=== PATIENT | female | born 1935 | race Caucasian/White ===

== ENCOUNTER 2017-05-17 07:43 | Observation (INO) | payer OTHER, BC ==
[2017-05-17] MEDS ORDERED: ceFAZolin 2 GM/DEXTROSE 100 ML IV ONE (08:27)
[2017-05-17] MEDS ORDERED: LR 1,000 ML IV ONE (08:28)
[2017-05-17] MEDS ORDERED: LIDOCAINE 1% 2 ML INJ ID PRN (08:28)
[2017-05-17] MEDS ORDERED: PHENAZOPYRIDINE HCL 200 MG TAB PO ONE (09:00)
[2017-05-17] MEDS ORDERED: BUPIVACAINE/EPI 0.5% 30 ML SDV ONE (09:21)
--- NOTE | 2017-05-17 09:35 | PDGENHP ---
History and Physical History and Physical: Assessment and Plan: 1. Lateral cystocele Andrea has stage III pelvic organ prolapse predominantly involving her anterior and apical compartments. We reviewed all conservative and surgical options. She is not interested in a pessary. She is a very active woman and prefers surgical correction. She will be scheduled for a robotic supracervical hysterectomy, BSO, sacro-colpopexy, mid urethral sling, and cystoscopy. They likely will be moving in the next 2 months. She would like to schedule this in April before her trip to [facility] in June. 2. Second degree uterine prolapse 3. Genuine stress incontinence, female Subjective: Patient ID: Andrea Ayoub is a 82 y.o. female who presents to [facility] for prolapse. HPI Andrea Ayoub presents for a preoperative visit. She is scheduled for a robotic supracervical hysterectomy, BSO, sacro-colpopexy, mid urethral sling, and cystoscopy.. The risks, benefits, and alternatives were presented and informed consent was obtained. 40 minutes of this 40 minute appointment was spent counceling, reviewing the procedure in detail, and discussing the preoperative and postoperative instructions. Below is a copy of our prior visit note. Andrea is an 81-year-old para [address] Cuevas who presents to discuss prolapse. She noticed a bulge protruding from her vagina several months ago. She saw Dr. Cuevas who diagnosed her with prolapse. They discussed options. She is interested in surgical correction. She states her urine stream is normal. She did leak urine before she noticed the bulge but has not been leaking with sneezing since then. She has no problems emptying her bowels. She is not sexually active secondary to her 's prostate cancer. She is a very active woman participating in walking, aqua exercise, and working outside. PastMedicalHistory Past Medical History: Diagnosis Date Acute conjunctivitis 12/04/2009 Arthritis Basal cell carcinoma 07/31/2014 Left superior back, Left posterior shoulder Chronic kidney disease Diabetes mellitus (HC code) Diarrhea 03/20/2014 Hypertension Squamous carcinoma (HC code) 07/31/2014 nose Upper respiratory infection 10/22/2014 PastSurgicalHistory Past Surgical History: Procedure Laterality Date CHOLECYSTECTOMY COLONOSCOPY last done at 66 declines further SKIN BIOPSY TONSILLECTOMY AND ADENOIDECTOMY CURRENT MEDICATIONS: Current Outpatient Prescriptions Medication Sig amLODIPine (NORVASC) 5 mg tablet Take 1 tablet by mouth daily. aspirin 81 mg chewable tablet Take 81 mg by mouth daily. atenolol (TENORMIN) 25 mg tablet Take 1 tablet by mouth daily. atorvaSTATin (LIPITOR) 20 mg tablet Take 1 tablet by mouth daily. As directed CALCIUM-VITAMIN D3 PO Take 1 tablet by mouth daily. ergocalciferol, vitamin D2, (DRISDOL) 50,000 unit capsule TAKE 1 CAPSULE EVERY OTHER WEEK FEXOFENADINE HCL (ANGEL PO) Take by mouth daily. losartan-hydrochlorothiazide (HYZAAR) 100-25 mg per tablet Take 1 tablet by mouth daily. metFORMIN (GLUCOPHAGE-XR) 500 mg 24 hr tablet TAKE 2 TABLETS DAILY montelukast (SINGULAIR) 10 mg tablet Take 1 tablet by mouth daily as needed for allergies. multivitamin (HEXAVITAMIN) per tablet Take 1 tablet by mouth daily. omega-3 fatty acids-vitamin E (FISH OIL) 1,000 mg capsule Take by mouth daily. No current facility-administered medications for this visit. ALLERGIES: Jose inhibitors I have reviewed, verified and agree with the past medical, surgical, , family, social and ROS history as documented by the RN today. Review of Systems Objective: Vital Signs: There were no vitals taken for this visit. Physical Exam Gen: This is an alert, well developed woman in no distress. Neuro: She moves all extremities. Psych: She is appropriate, oriented, with normal affect. Neck: No thyroid enlargement, adenopathy, or tenderness. Lungs: Clear to ascultation, no wheezes or rales. Heart: Regular rate and rhythm without obvious murmurs. Abdomen: Soft, non-tender, without guarding, rebound, or masses. Extremities: No edema or cyanosis. Pelvic: Normal external genitalia. Cervix without lesions or discharge. Uterus normal sized, mobile, non-tender. Adnexa non-tender without enlargement. The introitus is mildly gaping. The vagina is atrophic. She has a third- degree cystocele, second-degree uterine prolapse to the hymen and greater than first-degree rectocele. The urethra is mobile with small leaking with coughing. TIME/COMMUNICATION: I personally spent a total of 40 minutes. Of that 30 minutes was counseling/ coordination of patient's care. See my note above for details. Willie Grimes MD Board Certified Female Pelvic Medicine and Reconstructive Surgery Director of Minimally Invasive Gynecologic Surgery, [facility] Minimally Invasive Gynecologic Surgery Designee
[2017-05-17] MEDS ORDERED: MIDAZOLAM 2 MG/2 ML VIAL IVP ONE (09:51)
--- NOTE | 2017-05-17 09:51 | PDANEPAE ---
ANE History of Present Illness 82 yo for laparscopic hysterectomy ANE Past Medical History - Cardiovascular History Hx Hypertension: Yes Hx Arrhythmias: No Hx Chest Pain: No Hx Coronary Artery / Peripheral Vascular Disease: No Hx CHF / Valvular Disease: No Hx Palpitations: No Cardiovascular History Comment: well controlled - Pulmonary History Hx COPD: No Hx Asthma/Reactive Airway Disease: No Hx Recent Upper Respiratory Infection: No Hx Oxygen in Use at Home: No Hx Sleep Apnea: No Sleep Apnea Screening Result - Last Documented: Negative - Neurologic History Hx Cerebrovascular Accident: No Hx Seizures: No Hx Dementia: No - Endocrine History Hx Diabetes: No Endocrine History Comment: NIDDM HgbA1C 6.6 - Renal History Hx Renal Disorders: Yes Renal History Comment: stress incontinence, longer time to empty bladder. - Liver History Hx Hepatic Disorders: No - Neurological & Psychiatric Hx Hx Neurological and Psychiatric Disorders: No - Cancer History Hx Cancer: No Cancer History Comment: basal cell skin CA -nose, back - Congenital Disorder History Hx Congenital Disorders: No - GI History Hx Gastrointestinal Disorders: No - Other Health History Other Health History: Uterine prolapse. OA hips, knees - Chronic Pain History Chronic Pain: No - Surgical History Prior Surgeries: tonsillectomy - child. lap katherin. cataract extractions w/IOL ANE Review of Systems Review of Systems: - Exercise capacity METS (RN): 4 METS ANE Patient History - Allergies Allergies/Adverse Reactions: No Known Allergies Allergy (Verified 05/02/17 14:44) - Home Medications Home Medications: Aspirin [Aspirin 81mg (*)] 81 mg PO DAILY 04/25/17 [Last Taken 05/10/17] Atenolol [Tenormin 25 mg (*)] 25 mg PO DAILY 04/25/17 [Last Taken 05/17/17 06:00 ] Atorvastatin Calcium [Lipitor 20 mg (*)] 20 mg PO HS 04/25/17 [Last Taken 22:00] Ergocalciferol [Vitamin D2 (*)] 50,000 unit PO Q14D 04/25/17 [Last Taken ] Herbals/Supplements -Info Only 1 ea PO DAILY 04/25/17 [Last Taken 05/10/17] Losartan/Hydrochlorothiazide [Losartan-Hctz 100-25 Mg Tab] 1 each PO DAILY 04/25 [Last Taken 05/16/17 07:00] Multivitamins [Multivitamin (*)] 1 each PO DAILY 04/25/17 [Last Taken 05/10/17] [place]-3 Fatty Acids [Fish Oil 1000 mg (*)] 2,000 mg PO DAILY 04/25/17 [Last Taken 05/10/17] amLODIPine BESYLATE [Norvasc 5 mg (*)] 5 mg PO DAILY 04/25/17 [Last Taken 06:00] metFORMIN HCL [Glucophage 500 mg (*)] 500 mg PO DAILY 04/25/17 [Last Taken 05/16 07:00] - NPO status NPO Since - Liquids (Date): 05/17/17 NPO Since - Liquids (Time): 06:00 NPO Since - Solids (Date): 05/16/17 NPO Since - Solids (Time): 19:00 - Smoking Hx Smoking Status: Never smoked ANE Labs/Vital Signs - Vital Signs Blood Pressure: 131/61 Heart Rate: 53 Respiratory Rate: 16 O2 Sat (%): 92 Height: 5 ft 4 in Weight: 63.957 kg ANE Physical Exam - Airway Mallampati Score: Class 2 Mouth exam: normal dental/mouth exam - Pulmonary Pulmonary: no respiratory distress - Cardiovascular Cardiovascular: regular rate and rhythym - ASA Status ASA Status: II ANE Anesthesia Plan Anesthesia Plan: general endotracheal anesthesia
[2017-05-17] MEDS ORDERED: fentaNYL 100 MCG/2 ML INJ ONE ×2 (09:56→10:39)
[2017-05-17] MEDS ORDERED: PROPOFOL/EMULSION 500 MG/50 ML BOTTLE IV ONE ×2 (09:57→11:55)
[2017-05-17] MEDS ORDERED: HYDROmorphONE/DILAUDID 2 MG/ML INJ ONE (11:45)
[2017-05-17] MEDS ORDERED: ONDANSETRON 4 MG/2 ML VIAL IVP PRN ×2 (12:58→13:16)
[2017-05-17] MEDS ORDERED: NALOXONE HCL 0.4 MG/ML INJ IVP PRN (12:58)
[2017-05-17] MEDS ORDERED: fentaNYL 100 MCG/2 ML INJ IVP PRN (12:58)
[2017-05-17] MEDS ORDERED: HYDROmorphONE/DILAUDID 1 MG/ML INJ IVP PRN ×2 (12:58→13:16)
[2017-05-17] MEDS ORDERED: HYDROCODONE/APAP 5/325 TAB PO PRN (13:16)
[2017-05-17] MEDS ORDERED: PROMETHAZINE HCL 25 MG/ML INJ IVP PRN (13:16)
[2017-05-17] MEDS ORDERED: DIAZEPAM 10 MG/2 ML SYR IVP PRN (13:16)
[2017-05-17] MEDS ORDERED: LR 1,000 ML IV SCH (13:30)
[2017-05-17] MEDS ORDERED: ONDANSETRON 4 MG/2 ML VIAL ONE (14:21)
--- NOTE | 2017-05-17 14:43 | GOP ---
[f rep st] OPERATIVE REPORT DATE OF OPERATION: 05/17/2017 SURGEON: Willie Grimes MD HEAD OF MARKETING ADOMETRY: Ciera Saldivar CFA. ANESTHESIA: General. PREOPERATIVE DIAGNOSIS: 1. Cystocele. 2. Rectocele. 3. Uterine prolapse. 4. Stress urinary incontinence. POSTOPERATIVE DIAGNOSIS: 1. Cystocele. 2. Rectocele. 3. Uterine prolapse. 4. Stress urinary incontinence. PROCEDURE PERFORMED: 1. Robotic-assisted laparoscopic hysterectomy, bilateral salpingo-oophorectomy. 2. Robotic-assisted laparoscopic sacrocervicopexy with mesh. 3. Repair of cystocele and rectocele. 4. Transobturator sling. 5. Cystoscopy. FINDINGS: SPECIMENS: Uterus, bilateral tubes and ovaries. ESTIMATED BLOOD LOSS: Scant. DESCRIPTION OF PROCEDURE: The patient was taken to the operating room where she was identified. Gen eral anesthesia was administered, found to be adequate. She was placed in the lithotomy position and prepared and draped in normal sterile fashion. A Faulkner catheter was placed in her bladder. A 1 cm infraumbilical incision was made with a scalpel. The Veress needle with the CO2 gas flowing was adva nced into the peritoneal cavity. The abdomen was then insufflated with carbon dioxide gas. The 12 m m trocar, followed by the laparoscope, were then inserted. The upper abdomen was unremarkable. Two lateral ports were placed on either side under direct visualization. She then was placed in [place] n[place] position and the da Julieth robot docked on the left side. The instruments were brought into the abdominal cavity under direct visualization. The left round ligament was divided. The anterior leaf of the broad ligament was incised to the bifu rcation of the left common iliac vessels. A window was created in the posterior leaf to skeletonize the infundibulopelvic vessels. They were then cauterized and transected. The anterior leaf of the b road ligament was then incised over the left uterine vessels and across the cervix. The bladder was gently dissected off the cervix and upper vagina. The left uterine vessels were then cauterized and transected. The exact same procedure was performed on the patient's right side. The uterus was then bivalved to aid in removal through the umbilicus. The uterus and upper 2/3 of the cervix were amput ated from the lower third of the cervix with the hot anjelica. The specimen was then placed in the rig upper quadrant for later removal. The Colpo-Probe was then placed in the vagina. The bladder was further dissected off the anterior vaginal wall down to the level of the bladder neck. The rectovag inal space was then entered and the rectum dissected off the posterior vaginal wall down to the level of the perineal body. Measurements were then obtained and the mesh trimmed to size. The sigmoid co romel was then retracted laterally. The peritoneum of the sacral promontory was incised. The fat pad was gently dissected off the anterior longitudinal ligament. The mesh was then brought into the abdo janki cavity. Three sutures of 4-0 [place] were used to attach the distal posterior mesh to the per ineal body. Two additional rows of [place] sutures were placed posteriorly. Three rows were placed anteriorly to suture the mesh down to the bladder neck and laterally to the paravaginal tissue. The Colpo-Probe was then removed. The mesh was placed over the promontory and the tension adjusted. I then scrubbed back into the case to examine the vagina. The tension was then further adjusted to res olve the cystocele and rectocele without undue tension on the vagina. Two sutures of 2-0 [place] we re used to attach the sacral arm of the mesh to the anterior longitudinal ligament at the level of th e upper 1st sacral vertebral body. The excess mesh was then trimmed. The peritoneum was then closed over the entire mesh. The robot was then undocked. The specimen was removed through the umbilicus. The fascia was closed with 0 Vicryl, skin with 4-0 Monocryl and surgical adhesive. Attention was then turned to the sling portion of the procedure. A midurethral incision was made wit h a scalpel. Tunnels were created bilaterally out to the obturator internus muscles. Skin incisions were made over the obturator notches. The Halo trocar was placed through the left skin incision, re directed around the ischiopubic rami and out the vaginal incision using a vaginal finger as a guide. The lateral sulci were examined and no evidence of vaginal injury had occurred. The sling was then attached and brought out along the same course. The exact same procedure was performed on the patien t's right side. The sling was then adjusted to allow a small midurethral gap. The vaginal epitheliu m was closed with 2-0 Vicryl, skin with 4-0 Monocryl. Cystoscopy was then performed. Both ureters had vigorous jets of urine. No evidence of bladder nor urethral injury seen. No mesh nor suture was seen within the bladder nor urethra. No obvious pathol ogy was seen. Vaginal packing was then placed, anesthesia was reversed, and patient taken to PACU aw isaac, in stable condition. COMPLICATIONS: None. DISPOSITION: Patient stable to PACU. /[id number]/MODL
[2017-05-17] MEDS: KETOROLAC 15 MG/1 ML SDV IVP SCH (18:18)
[2017-05-17] MEDS: SIMETHICONE 80 MG TAB CHEW PO SCH ×2 (19:04→21:50)
[2017-05-17] MEDS ORDERED: ATORVASTATIN CALCIUM 20 MG TAB PO SCH (21:00)
[2017-05-17] MEDS: DOCUSATE SODIUM 100 MG CAP PO SCH (21:50)
[2017-05-18] MEDS: KETOROLAC 15 MG/1 ML SDV IVP SCH ×3 (00:21→11:57)
[2017-05-18 06:27] LABS: HEMATOCRIT 37.7 % (38.0-47.0); HEMOGLOBIN 12.5 g/dL (12.6-16.3)
[2017-05-18 08:24] VITALS: RESP 15; TEMP 98
[2017-05-18] MEDS: SIMETHICONE 80 MG TAB CHEW PO SCH (08:46)
[2017-05-18 08:50] VITALS: BP 109/67; PULSE 59
[2017-05-18] MEDS ORDERED: metFORMIN HCL 500 MG TAB PO SCH (09:00)
[2017-05-18] MEDS ORDERED: ASPIRIN 81 MG CHEWABLE TAB PO SCH (09:00)
[2017-05-18] MEDS ORDERED: LOSARTAN/HCTZ 50/12.5 1 TAB PO SCH (09:00)
[2017-05-18] MEDS ORDERED: ATENOLOL 25 MG TAB PO SCH (09:00)
[2017-05-18] MEDS ORDERED: amLODIPine BESYLATE 5 MG TAB PO SCH (09:00)
[2017-05-18 12:47] VITALS: O2SAT 92
[2017-05-18] MEDS: DOCUSATE SODIUM 100 MG CAP PO SCH (12:50)
== END 2017-05-18 12:30 | disposition home or self-care (01) ==
LOC: F3E 07:43 → FOB 14:44
PROVIDERS: ADMIT Obstetrics & Gynecology; ATTEND Obstetrics & Gynecology
DX: N81.2 Incomplete uterovaginal prolapse (principal); N39.3 Stress incontinence (female) (male); N18.9 Chronic kidney disease, unspecified; E11.9 Type 2 diabetes mellitus without complications; I10 Essential (primary) hypertension; Z85.828 Personal history of other malignant neoplasm of skin
CPT/HCPCS: 57288; 57423; 57425; 58542; C1763; C1771; J0690; J1170; J1885; J2250; J2405; J2704; J3010